=== PATIENT | male | born 1955 | race Hispanic/Latino ===

== ENCOUNTER 2020-11-07 09:26 | Outpatient (CLI) | payer OTHER | END 2020-11-07 09:27 | disposition home or self-care (01) | LOC: BICRAD 09:26 | PROVIDERS: ATTEND Family Medicine | DX: M25.511 Pain in right shoulder (principal); M19.011 Primary osteoarthritis, right shoulder ==

== ENCOUNTER 2022-06-14 15:19 | Observation (INO) | payer BC, SELFPAY ==
[2022-06-14 19:00] LABS: #Eosinphils 0.3 thou/uL (0.0-0.7); #Monocytes 0.5 thou/uL (0.11-0.59); #Neutrophils 6.3 thou/uL (1.40-6.50); %Basophils 0.2 % (0.0-1.0); %Eosinophils 3.7 % (0.0-10.0); %Lymphocytes 21.5 % (21.0-51.0); %Monocytes 5.3 % (0.0-10.0); %Neutrophils 69.3 % (42.0-75.0); Hemoglobin 12.3 g/dL (14.0-18.0); Mean Corpuscular HGB CONC 32.7 g/dL (32.0-36.0); Mean Corpuscular Hemoglobin 29.2 pg (27.0-31.0); Mean Corpuscular Volume 89.3 fL (78.0-98.0); Mean Platelet Volume 6.3 fL (7.4-10.4); Platelet Count 557 thou/uL (130-400); RBC Distribution Width 12.1 % (11.5-14.5); Red Blood Cell (RBC) Count 4.23 mill/uL (4.70-6.10); White Blood Cell (WBC) Count 9.1 thou/uL (4.8-10.8)
[2022-06-14 19:33] LABS: Albumin 3.6 g/dL (3.4-4.8)
[2022-06-14 19:34] LABS: Calcium 8.8 mg/dL (7.8-10.44); Chloride 106 mmol/L (98-107); Potassium 4.1 mmol/L (3.5-5.1); Sodium 138 mmol/L (136-145)
[2022-06-14 19:35] LABS: Glucose 139 mg/dL (80-115); Protein, Total 6.6 g/dL (5.8-8.1)
[2022-06-14 19:37] LABS: Bilirubin, Total 0.3 mg/dL (0.2-1.2); Carbon Dioxide 25 mmol/L (23-31)
[2022-06-14 19:38] LABS: Alkaline Phosphatase 103 U/L (40-110); Calc. Creatinine Clearance 0 mL/min (70-130); Estimated GFR 75
[2022-06-14 19:39] LABS: BUN (Urea Nitrogen) 10 mg/dL (8.4-25.7)
[2022-06-14 19:40] LABS: AST (SGOT) 10 U/L (5-34)
[2022-06-14 19:41] LABS: ALT (SGPT) 9 U/L (8-55)
[2022-06-14 19:56] LABS: Anion Gap 22 mmol/L (10-20)
[2022-06-14] MEDS ORDERED: Aspirin Chewable 81 MG TAB ONE (20:48)
[2022-06-14 22:07] LABS: Troponin I Less than 0.010 ng/mL (< 0.028)
[2022-06-14 22:12] VITALS: BMI 21.2
[2022-06-14 22:57] LABS: SARS-CoV-2 NAA Rapid Test Not Detected (NotDetected)
[2022-06-15] MEDS ORDERED: Acetaminophen 325 MG TAB PO PRN (00:36)
[2022-06-15] MEDS ORDERED: Guaifenesin DM 100-10/5 ML UDCUP PO PRN (00:36)
[2022-06-15] MEDS ORDERED: Bisacodyl 10 MG SUPP PR PRN (00:36)
[2022-06-15] MEDS ORDERED: Acetaminophen 650 MG Suppository PR PRN (00:36)
[2022-06-15] MEDS ORDERED: Senokot S 8.6-50 MG TAB PO PRN (00:36)
[2022-06-15] MEDS ORDERED: Ondansetron ODT 4 MG TAB PO PRN (00:36)
[2022-06-15] MEDS ORDERED: Ondansetron PF 4 MG/2 ML Vial IVP PRN (00:36)
[2022-06-15] MEDS ORDERED: Calcium Carbonate 500 MG ChewTAB PO PRN (00:36)
[2022-06-15] MEDS ORDERED: Bisacodyl 5 MG TAB PO PRN (00:36)
[2022-06-15] MEDS ORDERED: Nitroglycerin 0.4 MG TAB (25 Tab Bottle) SL PRN (00:36)
[2022-06-15] MEDS: Nicotine 14 MG PATCH TD SCH (01:19)
[2022-06-15 01:25] LABS: Troponin I Less than 0.010 ng/mL (< 0.028)
[2022-06-15 04:28] LABS: Troponin I Less than 0.010 ng/mL (< 0.028)
[2022-06-15] MEDS ORDERED: Carvedilol 3.125 MG TAB PO SCH (08:00)
[2022-06-15] MEDS: Aspirin Chewable 81 MG TAB PO SCH (08:50)
[2022-06-15] MEDS ORDERED: Atorvastatin Calcium 40 MG TAB PO SCH (21:00)
[2022-06-16] MEDS: Nicotine 14 MG PATCH TD SCH (02:12)
[2022-06-16] MEDS: Aspirin Chewable 81 MG TAB PO SCH (08:42)
[2022-06-16 17:33] VITALS: BP 103/58; TEMP 97.6
[2022-06-18] MEDS ORDERED: FLU VACC QS2022-23(65YR UP)/PF 240 MCG/0.7 ML SYRINGE IM ONE (09:00)
== END 2022-06-16 18:35 | disposition home or self-care (01) ==
LOC: ERS 15:19 → ERHOLD 21:19 → NEURO 06-15 04:21
PROVIDERS: ADMIT Internal Medicine; ATTEND Internal Medicine
DX: R07.2 Precordial pain (principal); F17.210 Nicotine dependence, cigarettes, uncomplicated; I08.8 Other rheumatic multiple valve diseases; Z20.822 Contact with and (suspected) exposure to COVID-19
CPT/HCPCS: 36415; 71045; 78452; 80053; 84484; 85025; 93005; 93017; 93306; 94760; A9500; G0378; U0002